=== PATIENT | male | born 1995 | race Caucasian/White ===

== ENCOUNTER 2019-11-22 19:35 | Emergency (ER) | payer MEDICAID ==
[~2019-11-22] VITALS: Ht 175.3 cm; Wt 117.9 kg
--- NOTE | 2019-11-22 20:15 | NUR ---
[id number]. [id number]. C/O L KNEE PAIN S/P TWISTED WHILE GETTING IN THE CAR. PLACED ON MONITOR AND PUILSE OX. NO ACUTE DISTRESS NOTED.VSS. PT ABLE TO MOVE KNEE SLOWLY. AWAITING FOR MD FOR EVAL.
[2019-11-22] MEDS ORDERED: KETOROLAC TROMETHAMINE INJ 30 MG/ML VIAL ONE (20:39)
--- NOTE | 2019-11-22 20:43 | NUR ---
ICE PACK APPLIED ON L KNEE
--- NOTE | 2019-11-22 20:48 | NUR ---
EMT AT [facility] FOR Cheo JOLLY
[2019-11-22] MEDS ORDERED: KETOROLAC TROMETHAMINE INJ 60 MG/2 ML VIAL IM ONE (21:00)
[2019-11-22 21:01] VITALS: BP 141/77
--- NOTE | 2019-11-22 21:01 | NUR ---
Patient discharged to home in stable condition. Written and verbal after care instructions given. Patient verbalizes understanding of instruction.
== END 2019-11-22 21:02 | disposition home or self-care (01) ==
LOC: ER 19:38
DX: S83.8X2A Sprain of other specified parts of left knee, initial encounter (principal); M25.362 Other instability, left knee; X50.1XXA Overexertion from prolonged static or awkward postures, initial encounter; Y93.89 Activity, other specified; Y92.89 Other specified places as the place of occurrence of the external cause; Y99.8 Other external cause status
CPT/HCPCS: 29505; 96372; 99283; J1885